=== PATIENT | female | born 1950 | race Caucasian/White ===

== ENCOUNTER 2024-10-20 09:50 | Emergency (ER) | payer MEDICARE, OTHER | END 2024-10-20 10:12 | LOC: BURERS 09:50 | DX: T16.2XXA Foreign body in left ear, initial encounter (principal); I11.0 Hypertensive heart disease with heart failure; I50.9 Heart failure, unspecified; E03.9 Hypothyroidism, unspecified; Z79.82 Long term (current) use of aspirin; Z79.890 Hormone replacement therapy; Z79.899 Other long term (current) drug therapy; W44.F4XA Insect entering into or through a natural orifice, initial encounter | CPT/HCPCS: 99282 ==